=== PATIENT | male | born 1990 | race Caucasian/White ===

== ENCOUNTER 2017-05-14 22:25 | Emergency (ER) | payer MEDICAID ==
[~2017-05-14] VITALS: Ht 175.3 cm; Wt 79.0 kg
[2017-05-14 23:03] VITALS: BP 130/96
== END 2017-05-14 23:28 | disposition home or self-care (01) ==
LOC: ER 22:34
DX: R07.89 Other chest pain (principal); R03.0 Elevated blood-pressure reading, without diagnosis of hypertension
CPT/HCPCS: 71010; 99283; Z7610